=== PATIENT | male | born 1975 | race Hispanic/Latino ===

== ENCOUNTER 2019-03-03 20:39 | Emergency (ER) | payer MEDICAID ==
--- NOTE | 2019-03-03 22:03 | ED PDOC ---
HPI: Psych/Substance Abuse Time Seen by Provider: 03/03/19 20:54 Chief Complaint (Nursing): Alcohol Ingestion Chief Complaint (Provider): Alcohol Ingestion History Per: Patient, EMS History/Exam Limitations: no limitations Onset/Duration Of Symptoms: Hrs Current Symptoms Are (Timing): Still Present Suicide/Self Injury Attempted (Context): None Modifying Factor(s): Alcohol Additional Complaint(s): 43 y/o male with no significant PMHx brought in by EMS for public intoxication and walking with an unsteady gait. Patient admits to drinking alcohol today. Otherwise, patient denies drugs and suicidal or homicidal thoughts. Patient offers no complaints at this time. PMD: none provided Past Medical History Reviewed: Historical Data, Nursing Documentation, Vital Signs Vital Signs: Last Vital Signs Temp 98.1 F 03/03/19 20:42 Pulse 107 H 03/03/19 20:42 Resp 20 03/03/19 20:42 BP 126/80 03/03/19 20:42 Pulse Ox 98 03/03/19 20:42 - Medical History PMH: No Chronic Diseases - Surgical History Surgical History: No Surg Hx - Family History Family History: States: Unknown Family Hx - Social History Alcohol: > 2 Drinks/Day - Allergies Allergies/Adverse Reactions: Allergies Allergy/AdvReac Type Severity Reaction Status Date / Time No Known Allergies Allergy Verified 03/03/19 20:42 Review of Systems ROS Statement: Except As Marked, All Systems Reviewed And Found Negative Psych: Positive for: Other (alcohol intoxication). Negative for: Suicidal ideation Physical Exam - Reviewed Nursing Documentation Reviewed: Yes Vital Signs Reviewed: Yes - Physical Exam Appears: Positive for: No Acute Distress (but mildly intoxicated) Head Exam: Positive for: ATRAUMATIC, NORMOCEPHALIC Skin: Positive for: Normal Color, Warm, Dry Eye Exam: Positive for: Normal appearance, EOMI, PERRL Neck: Positive for: Normal, Painless ROM, Supple Cardiovascular/Chest: Positive for: Regular Rate, Rhythm. Negative for: Murmur Respiratory: Positive for: Normal Breath Sounds. Negative for: Respiratory Distress Gastrointestinal/Abdominal: Positive for: Normal Exam, Soft. Negative for: Tenderness Extremity: Positive for: Normal ROM. Negative for: Deformity Neurological/Psych: Positive for: Awake, Alert, Oriented (x3), Gait (unsteady gait). Negative for: Motor/Sensory Deficits - ECG O2 Sat by Pulse Oximetry: 98 (RA) Pulse Ox Interpretation: Normal Medical Decision Making Medical Decision Making: Time: 2200 A/P: 43 y/o male appearing mildly intoxicated. -- Patient with stable vitals and no signs of injuries. -- Will continue to monitor in the ED -- When patient is clinically sober, patient will be discharged home. 2330 Patient is awake, alert and clinically sober with steady gait. Patient is stable for discharge. Scribe Attestation: Documented by Violeta Gee, acting as a scribe Pedro Haynes MD. Provider Scribe Attestation: All medical record entries made by the Scribe were at my direction and personally dictated by me. I have reviewed the chart and agree that the record accurately reflects my personal performance of the history, physical exam, medical decision making, and the department course for this patient. I have also personally directed, reviewed, and agree with the discharge instructions and disposition. Disposition - Clinical Impression Clinical Impression: Alcohol abuse - Patient ED Disposition Is Patient to be Admitted: No - Disposition Referrals: Alcoholics Anonymous [Outside] Disposition: Routine/Home Disposition Time: 23:30 Condition: IMPROVED Instructions: Alcohol Use - When Is Drinking a Problem? Forms: [facility] ([place])
[2019-03-03 23:37] VITALS: BP 122/78; PULSE 88; RESP 18; TEMP 98.3
[2019-03-04 06:06] VITALS: O2SAT 98
== END 2019-03-03 23:36 | disposition home or self-care (01) ==
LOC: H.ER 20:39
DX: F10.10 Alcohol abuse, uncomplicated (principal)